=== PATIENT | male | born 1980 | race African-American/Black ===

== ENCOUNTER 2025-05-31 13:41 | Emergency (ER) | payer MEDICAID ==
[~2025-05-31] VITALS: Ht 162.6 cm; Wt 66.0 kg
[2025-05-31 14:59] VITALS: O2SAT 100
[2025-05-31] MEDS ORDERED: ALBU18HF2 IH (16:36)
[2025-05-31 16:40] VITALS: BP 120/80; PULSE 90; RESP 20; TEMP 37.1; O2SAT 100
[2025-05-31] MEDS ORDERED: GUAI600T26 MT (16:43)
== END 2025-05-31 16:42 | disposition home or self-care (01) ==
LOC: ER 13:58
DX: R05.9 Cough, unspecified (principal); F12.90 Cannabis use, unspecified, uncomplicated; F17.200 Nicotine dependence, unspecified, uncomplicated
CPT/HCPCS: 71046; 99283